=== PATIENT | female | born 1950 | race Caucasian/White ===

== ENCOUNTER 2016-12-04 09:18 | Outpatient (CLI) | payer MEDICARE ==
[2016-12-04] MEDS ORDERED: LIDOCAINE 1% 50 ML MDV SUBQ ONE (10:53)
[2016-12-04] MEDS ORDERED: BUFFERED LIDOCAINE 10 ML SYRINGE IU ONE (10:53)
[2016-12-04] MEDS ORDERED: GADOPENTETATE DIMEGLUMINE 5 ML VIAL IVP ONE (10:53)
[2016-12-04] MEDS ORDERED: IOTHALAMATE MEGLUMINE 50 ML VIAL IVP ONE (10:53)
--- NOTE | 2016-12-04 12:55 | XRAY Report ---
RIGHT WRIST INJECTION FOR MR ARTHROGRAM: 12/04/2016 CLINICAL INDICATION: Pain, question scapholunate ligament disruption. FINDINGS: Following obtaining informed consent, the patient's right wrist was prepped and draped in the usual sterile fashion. The skin and soft tissues were anesthetized with lidocaine. A butterfly needle was inserted into the radioscaphoid joint space, and following confirmation of needle position ing, a combination of iodinated contrast, dilute gadolinium, and lidocaine was injected intraarticula rly. The patient tolerated the procedure well. No immediate complications. Spot image reveals no e vidence of contrast extravasation. IMPRESSION: SUCCESSFUL RIGHT WRIST INJECTION FOR MR ARTHROGRAM. FLUOROSCOPY TIME: 34 seconds; 1 spot image obtained. JOB #: [id number] EXT JOB #:[id number]
--- NOTE | 2016-12-04 16:32 | MRI Report ---
EXAM: RIGHT WRIST MRI ARTHROGRAM WITH CONTRAST EXAM DATE: 12/04/2016 11:17 AM. CLINICAL HISTORY: Right wrist pain and weakness for 2.5 months. COMPARISON: None. TECHNIQUE: Multiplanar, multisequence T1-weighted and fluid-sensitive sequences of the wrist after an arthrographic injection of dilute gadolinium, dictated under a separate exam. Other: None. FINDINGS: Bones and articular surfaces: There is severe deformity of the distal ulna which may represent an old healed fracture. Severe joint space narrowing at the distal radioulnar joint. Some dorsal subluxatio n of the distal ulna. Lobulated contrast distention of the distal radioulnar joint. Neutral position of the distal ulna articulating with the ulnar aspect of the proximal lunate where there is cartilage thinning and tiny subchondral cyst. Moderate cartilage thinning and fissuring with subchondral edema and subchondral cyst termination at the radiolunate articulation. Musculotendinous structures: Visualized flexor and extensor tendons appear intact without evidence of significant tendinosis or tenosynovitis. Ligaments: Lunotriquetral ligament appears intact. There is slight widening of the scapholunate joint space. There is contrast extending between the scaphoid and lunate with contrast filling defect seen within the proximal scapholunate ligament. There is contrast extension beyond the proximal carpal ro w throughout the wrist compartments. In addition, there is a large defect of the central disk of the triangular fibrocartilage consistent with large tear. Contrast extension and distention of the distal radioulnar joint. IMPRESSION: 1. Large defect within the central disk of the triangular fibrocartilage. 2. Partial tear of the scapholunate ligament allowing contrast extension distal to the proximal carpa l row. 3. Severe distal radioulnar joint osteoarthritis. 4. Moderate to severe focal osteoarthritis at the radiolunate articulation. RADIA MUSCULOSKELETAL RADIOLOGY SECTION Referring Provider Line: [phone] SITE ID: [id number]
== END 2016-12-04 09:19 | disposition home or self-care (01) ==
LOC: DI 09:18
PROVIDERS: ATTEND Orthopaedic Surgery
DX: S63.8X1A Sprain of other part of right wrist and hand, initial encounter (principal); M21.931 Unspecified acquired deformity of right forearm; M19.031 Primary osteoarthritis, right wrist
CPT/HCPCS: 20610; 73222; 77002; Q9961

== ENCOUNTER 2020-07-02 16:38 | Outpatient (CLI) | payer MEDICARE | END 2020-07-02 16:39 | disposition home or self-care (01) | LOC: COV 16:38 | PROVIDERS: ATTEND Surgery | DX: Z01.812 Encounter for preprocedural laboratory examination (principal); K21.9 Gastro-esophageal reflux disease without esophagitis; Z83.71 Family history of colonic polyps; Z20.822 Contact with and (suspected) exposure to COVID-19 ==

== ENCOUNTER 2020-07-05 11:32 | Day surgery (SDC) | payer MEDICARE ==
[2020-07-05] MEDS ORDERED: LACTATED RINGERS 1,000 ML IV ONE ×2 (11:35→13:46)
[2020-07-05] MEDS ORDERED: LIDO GARGLE 30 ML BOTTLE ONE (11:52)
[2020-07-05] MEDS ORDERED: LIDO GARGLE 30 ML BOTTLE TOP ONE ×2 (12:39→12:52)
[2020-07-05] MEDS ORDERED: BENZOCAINE/TETRACAINE/BUTAMBEN 20 GM TOP ONE ×2 (12:39→12:52)
[2020-07-05] MEDS ORDERED: MIDAZOLAM 2 MG/2 ML VIAL ONE ×2 (12:56→13:51)
[2020-07-05] MEDS ORDERED: fentaNYL 250 MCG/5 ML VIAL ONE (12:56)
--- NOTE | 2020-07-05 14:09 | OPERATIVE REPORT ---
Operative Report - General Procedure Date: 07/05/20 Planned Procedure: Hemorrhoid banding Pre-Op Diagnosis: Bleeding internal hemorrhoids Procedure Performed: EUA with banding of internal hemorrhoids Post Op Diagnosis: Same - Procedure Note Primary Surgeon: Tanesha Anesthesia Provider: SHAAN Wells Anesthesia Technique: Moderate sedation Indications: Bleeding internal hemorrhoids Findings: 3 column enlarged and bleeding internal hemorrhoids Complications: None apparent - Other Other Information/Narrative: Colonoscopy was completed immediately prior to the banding procedure. Timeout was done at the start of the colonoscopy procedure.The patient remained sedated with monitored anesthesia care at this time. All elements of the surgical safety checklist were followed before, during, and after this procedure. The anoscope with obturator was lubricated and placed in the patient's anal canal. The obturator was removed and the slots aligned to allow access to 3 column internal hemorrhoids. The device, the [employer] multi band ligator-short shot-was placed into the anal canal. The tip of the device was placed in contact with the tissue to be treated beginning at the 4 o'clock position. The suction port was closed. A single band was deployed and the suction port released.The band was noted to be in place.We next addressed the hemorrhoid complex at 7:00.The tip of the device was placed in contact with the tissue, the suction port covered, a band deployed, the suction port released. Again we were able to see that the band was in place.We next addressed the hemorrhoid at the 11 o'clock position. This was the smallest of the 3. The tip of the device was placed in contact with the tissue, the suction port covered, a band deployed, the suction port released. Again we were able to see that the band was in place.Examination of the anal count canal revealed all [address] The anoscope was removed and the procedure concluded. The patient tolerated the procedure well. She was allowed awaken from sedation and taken to the postanesthesia care unit in good condition.
[2020-07-05 14:25] VITALS: BP 114/57
== END 2020-07-05 11:33 | disposition home or self-care (01) ==
LOC: SDS 11:32
PROVIDERS: ATTEND Surgery
PROC: 0DJD8ZZ Inspection of Lower Intestinal Tract, Via Natural or Artificial Opening Endoscopic (ICD-10-PCS; 2020-07-05)
PROC: 065Y4ZC Destruction of Hemorrhoidal Plexus, Percutaneous Endoscopic Approach (ICD-10-PCS; 2020-07-05)
PROC: 0DB98ZX Excision of Duodenum, Via Natural or Artificial Opening Endoscopic, Diagnostic (ICD-10-PCS; principal; 2020-07-05 12:30)
PROC: 0DB58ZX Excision of Esophagus, Via Natural or Artificial Opening Endoscopic, Diagnostic (ICD-10-PCS; 2020-07-05 12:30)
DX: Z12.11 Encounter for screening for malignant neoplasm of colon (principal); Z86.010 Personal history of colon polyps; K64.8 Other hemorrhoids; K57.30 Diverticulosis of large intestine without perforation or abscess without bleeding; K21.9 Gastro-esophageal reflux disease without esophagitis; K29.50 Unspecified chronic gastritis without bleeding; K44.9 Diaphragmatic hernia without obstruction or gangrene; K29.80 Duodenitis without bleeding
CPT/HCPCS: 43239; 46221; A9270; G0105; J3010; J7120

== ENCOUNTER 2021-02-11 19:09 | Outpatient (CLI) | payer MEDICARE | END 2021-02-11 19:10 | disposition home or self-care (01) | LOC: COV 19:09 | PROVIDERS: ATTEND Orthopaedic Surgery | DX: Z01.812 Encounter for preprocedural laboratory examination (principal); Z20.822 Contact with and (suspected) exposure to COVID-19 ==

== ENCOUNTER 2021-08-30 11:19 | Outpatient (CLI) | payer MEDICARE ==
[2021-08-30 12:02] LABS: CHOL/HDL RATIO 5.3 (<4.4); CHOLESTEROL 270 mg/dL; HDL CHOLESTEROL 51 mg/dL; LDL CHOLESTEROL,CALCULATED 196 mg/dL; LDL/HDL RATIO 3.8 (<4.4); TRIGLYCERIDES 117 mg/dL; VLDL CHOLESTEROL 23 mg/dL
[2021-08-30 12:29] LABS: ESTIMATED AVERAGE GLUCOSE 126 mg/dL (70-100)
== END 2021-08-30 11:20 | disposition home or self-care (01) ==
LOC: LAB 11:19
PROVIDERS: ATTEND Registered Nurse
DX: E78.5 Hyperlipidemia, unspecified (principal); R73.03 Prediabetes
CPT/HCPCS: 36415; 80061; 83036; 83721

== ENCOUNTER 2023-01-29 14:51 | Emergency (ER) | payer MEDICARE ==
[2023-01-29] MEDS ORDERED: SODIUM CHLORIDE 0.9% 1,000 ML IV STA (15:09)
[2023-01-29] MEDS ORDERED: PROMETHAZINE INJ 25 MG in SODIUM CHLORIDE 0.9% 50 ML IV STA (15:09)
--- NOTE | 2023-01-29 15:10 | ED Physician Documentation ---
PD HPI ABD PAIN - Stated complaint Stated Complaint: NAUSEA - Chief complaint Chief Complaint: Abd Pain - History obtained from History obtained from: Patient, Family - Additional information Additional information: This is a generally healthy 72-year-old woman who presents with her for the evaluation of abdominal cramping diarrhea and dry heaves. She had a hip replacement about 4 weeks ago but has been off all of her narcotic analgesia for about the last 2 weeks. Starting yesterday she developed abdominal cramps and diarrhea with dry heaves today. States she had something a few years ago that she thought was food poisoning and found Phenergan to be very helpful. She denies fevers or chills. No recent travel or antibiotic use. PD PAST MEDICAL HISTORY - Past Medical History Endocrine/Autoimmune: HyPOthyroidism - Present Medications Home Medications: Ambulatory Orders Medication Instructions Recorded Confirmed Cholecalciferol (Vitamin D3) 5,000 unit PO DAILY 03/20/14 07/04/20 [Vitamin D3] Aspirin Chewable [[place] 81 mg PO DAILY 01/29/23 01/29/23 Aspirin] Ciprofloxacin HCl [Cipro] 500 mg PO BID #14 tablet 01/29/23 Gabapentin [Neurontin] 100 mg PO TID 01/29/23 01/29/23 Meloxicam 15 mg PO DAILY 01/29/23 01/29/23 Ondansetron Odt [Zofran] 4 mg TL Q6H PRN #10 tablet 01/29/23 metroNIDAZOLE [Flagyl] 500 mg PO TID 7 Days #21 tablet 01/29/23 - Allergies Allergies/Adverse Reactions: Allergies Allergy/AdvReac Type Severity Reaction Status Date / Time No Known Allergies Allergy Unknown Verified 01/29/23 15:00 PD ED PE NORMAL - Vitals Vital signs reviewed: Yes - General General: Alert and oriented X 3, Other (She appears uncomfortable) - HEENT HEENT: PERRL, EOMI - Neck Neck: Supple, no meningeal sign, No bony TTP - Cardiac Cardiac: RRR, No murmur - Respiratory Respiratory: No respiratory distress, Clear bilaterally - Abdomen Abdomen: Normal bowel sounds, Other (Modest left-sided abdominal tenderness without surgical signs) - Neuro Neuro: Alert and oriented X 3, Normal speech Results - Vitals Vitals: Vital Signs - 24 hr 01/29/23 01/29/23 14:56 17:55 Temperature 36.6 C Heart Rate 77 73 Respiratory 18 18 Rate Blood Pressure 146/72 H 171/67 H O2 Saturation 99 97 Oxygen O2 Source Room air - Labs Labs: Laboratory Tests 01/29/23 01/29/23 15:22 15:22 WBC 18.6 H RBC 5.20 Hgb 15.1 Hct 47.1 H MCV 90.6 MCH 29.0 MCHC 32.1 RDW 13.7 Plt Count 267 MPV 10.4 Neut # (Auto) Not Reportable Lymph # (Auto) Not Reportable [place] # (Auto) Not Reportable Eos # (Auto) Not Reportable Baso # (Auto) Not Reportable Absolute Nucleated RBC Not Reportable Total Counted 100 Band Neuts % (Manual) 0 Reactive Lymphs % (Man) 5 Abnorm Lymph % (Manual) 0 Nucleated RBC % Not Reportable Neutrophils # (Manual) 16.2 H Lymphocytes # (Manual) 1.5 Monocytes # (Manual) 0.9 Eosinophils # (Manual) 0.0 Basophils # (Manual) 0.0 Differential Comment MANUAL DIFFERENTIAL Platelet Estimate NORMAL (130-450,000) Platelet Morphology NORMAL APPEARANCE RBC Morph Micro Appear NORMAL APPEARANCE Sodium 138 Potassium 4.0 Chloride 102 Carbon Dioxide 24 Anion Gap 12.0 BUN 15 Creatinine 0.6 Estimated GFR (MDRD) 98 Glucose 148 H Calcium 9.8 Total Bilirubin 0.7 AST 16 ALT 15 Alkaline Phosphatase 78 Total Protein 6.8 Albumin 4.3 Globulin 2.5 Albumin/Globulin Ratio 1.7 Lipase 6 L - Rads (name of study) CT abdomen pelvis with IV contrast demonstrates colitis of the transverse and descending colon. Relevant Findings:: Final report received, EMP independent interpretation of test PD Medical Decision Making - ED course ED course: 72-year-old woman presents with diarrhea abdominal cramping and dry heaves with left-sided abdominal tenderness. Work-up in the emergency department shows a CBC with leukocytosis and relatively unremarkable CMP. CT demonstrating colitis. C. difficile is a concern but would not have had recent antibiotics save a single dose of IV antibiotics 4 weeks ago for her hip replacement, none more recently. She was unable to produce a stool sample while in the emergency department. She had initially specifically requested Phenergan for her nausea and IV Phenergan was given but not particularly helpful but was feeling better after IV Zofran and fluids. She passed a p.o. challenge and requested discharge. She was sent home with an outpatient lab requisition for stool culture and C. difficile test and supplies to do so with. Departure - Departure Disposition: Home, Self Care Clinical Impression: Colitis Condition: Good Record reviewed to determine appropriate education?: Yes Instructions: ED Diarrhea Bacterial Prescriptions: Ciprofloxacin HCl [Cipro] 500 mg PO BID #14 tablet metroNIDAZOLE [Flagyl] 500 mg PO TID 7 Days #21 tablet Ondansetron Odt [Zofran] 4 mg TL Q6H PRN #10 tablet PRN Reason: Nausea / Vomiting Comments: You were seen tonight for colitis, and infection of the colon. 1 because of colitis as we discussed, it is what is called C. difficile. I am sending you home with a lab requisition and materials to return a stool sample to the hospital to test for that in the meantime, he will take the antibiotics. Do not drink alcohol on the antibiotics. I am also writing a prescription for something for nausea. Return if worse. Follow-up with your doctor early next week if not better. Forms: PCP List
[2023-01-29 15:31] LABS: BASOPHILS % (AUTO) 0.3 %; EOSINOPHILS % (AUTO) 31.5 %; HCT - HEMATOCRIT 47.1 % (37.0-47.0); HGB - HEMOGLOBIN 15.1 g/dL (12.0-16.0); LYMPHOCYTES % (AUTO) 8.5 %; MEAN CORPUSCULAR HGB CONC 32.1 g/dL (32.0-36.0); MEAN CORPUSCULAR VOLUME 90.6 fL (81.0-99.0); MEAN PLATELET VOLUME 10.4 fL (7.9-10.8); NEUTROPHILS % (AUTO) 54.4 %; PLT - PLATELET COUNT 267 10^3/uL (130-450); RED CELL DISTRIBUTION WIDTH 13.7 % (12.0-15.0); WHITE BLOOD COUNT 18.6 x10^3/uL (4.8-10.8)
[2023-01-29 15:36] LABS: ABNORMAL LYMPHS % (MANUAL) 0 %; BAND NEUTROPHILS % (MANUAL) 0 %
[2023-01-29 15:53] LABS: ALBUMIN 4.3 g/dL (3.2-5.5); ALBUMIN/GLOBULIN RATIO 1.7 (1.0-2.2); BILIRUBIN,TOTAL 0.7 mg/dL (0.2-1.0); CALCIUM 9.8 mg/dL (8.5-10.3); CREATININE 0.6 mg/dL (0.6-1.3); TOTAL PROTEIN 6.8 g/dL (6.4-8.9)
[2023-01-29 16:15] LABS: LYMPHOCYTES # (MANUAL) 1.5 10^3/uL (1.5-3.5); LYMPHOCYTES % (MANUAL) 3 %; MONOCYTES # (MANUAL) 0.9 10^3/uL (0.0-1.0); NEUTROPHILS # (MANUAL) 16.2 10^3/uL (1.5-6.6); REACTIVE LYMPHS % (MANUAL) 5 %
[2023-01-29 16:16] LABS: DIFFERENTIAL COMMENT MANUAL DIFFERENTIAL; PLATELET ESTIMATE, MANUAL NORMAL (130-450,000) (NORMAL); PLATELET MORPHOLOGY NORMAL APPEARANCE (NORMAL); RBC MORPHOLOGY (MULTIPLE) NORMAL APPEARANCE (NORMAL)
[2023-01-29] MEDS ORDERED: iohexoL-300 100 ML VIAL IVP ONE (16:25)
[2023-01-29] MEDS ORDERED: ONDANSETRON 4 MG/2 ML VIAL IVP STA (16:42)
--- NOTE | 2023-01-29 16:59 | CT Report ---
PROCEDURE: ABDOMEN/PELVIS W INDICATIONS: iv only, l abd pain CONTRAST: 100ml omni 300 TECHNIQUE: After the administration of intravenous contrast, 5 mm thick sections acquired from the diaphragms to the symphysis. 5 mm thick coronal and sagittal reformats were acquired. For radiation dose reducti on, the following was used: automated exposure control, adjustment of mA and/or kV according to chanell ent size. COMPARISON: None. FINDINGS: Image quality: Excellent. Lung bases and heart: Unremarkable. Liver: No solid mass. Gallbladder and biliary tree: No radiopaque stones or wall thickening. No biliary dilation. Spleen: No splenomegaly. Pancreas: No pancreatic ductal dilation. Adrenals: No adrenal nodule. Kidneys and ureters: No hydronephrosis. No renal cystic lesion which requires follow up. No solid mas s. Bowel and peritoneum: Long segment of wall thickening and pericolonic fat stranding of the transverse and descending colon. Lymph nodes: No central or retroperitoneal adenopathy. Vessels: No infrarenal aortic aneurysm. PELVIS Reproductive organs: Unremarkable. Bladder: No abnormal wall thickening, accounting for underdistension. Pelvic lymph nodes: No pelvic adenopathy by size criteria. Bones: No aggressive osseous abnormality. Surgical fusion of the C4-5 vertebrae. Bilateral hip arthro plasties. Other: No significant ventral or inguinal hernia. IMPRESSION: Colitis of the transverse and descending colon. Given extent, C. difficile not excluded. Reviewed by: Lnius Manzanares on 01/29/2023 4:58 PM PDT Approved by: Linus Manzanares on 01/29/2023 4:58 PM PDT Station ID: [id number]
[2023-01-29] MEDS ORDERED: CIPROFLOXACIN 250 MG TABLET PO STA (17:42)
[2023-01-29] MEDS ORDERED: metroNIDAZOLE 250 MG TABLET PO STA (17:42)
[2023-01-29 18:01] VITALS: BP 171/67; O2SAT 97
[2023-01-29] MEDS ORDERED: ONDANSETRON ODT 4 MG Prepack 2 TL STA (18:26)
== END 2023-01-29 18:55 | disposition home or self-care (01) ==
LOC: ED 14:51
DX: K52.9 Noninfective gastroenteritis and colitis, unspecified (principal)
CPT/HCPCS: 36415; 74177; 80053; 83690; 85025; 96365; 96375; 99284; A9270; J7040; Q9967

== ENCOUNTER 2023-01-30 10:09 | Outpatient (CLI) | payer MEDICARE | END 2023-01-30 10:10 | disposition home or self-care (01) | LOC: LAB 10:09 | PROVIDERS: ATTEND Emergency Medicine | DX: R19.7 Diarrhea, unspecified (principal) | CPT/HCPCS: 87045; 87046; 87427; 87493 ==

== ENCOUNTER 2023-04-02 10:31 | Outpatient (CLI) | payer MEDICARE ==
[2023-04-02 15:21] LABS: BASOPHILS # (AUTO) 0.1 10^3/uL (0.0-0.1); BASOPHILS % (AUTO) 0.9 %; EOSINOPHILS # (AUTO) 0.2 10^3/uL (0.0-0.7); EOSINOPHILS % (AUTO) 2.5 %; HCT - HEMATOCRIT 48.3 % (37.0-47.0); HGB - HEMOGLOBIN 14.7 g/dL (12.0-16.0); LYMPHOCYTES # (AUTO) 2.3 10^3/uL (1.5-3.5); LYMPHOCYTES % (AUTO) 36.7 %; MEAN CORPUSCULAR HEMOGLOBIN 28.7 pg (27.0-31.0); MEAN CORPUSCULAR HGB CONC 30.4 g/dL (32.0-36.0); MEAN CORPUSCULAR VOLUME 94.2 fL (81.0-99.0); MEAN PLATELET VOLUME 11.6 fL (7.9-10.8); MONOCYTES # (AUTO) 0.7 10^3/uL (0.0-1.0); MONOCYTES % (AUTO) 10.2 %; NEUTROPHILS # (AUTO) 3.2 10^3/uL (1.5-6.6); NEUTROPHILS % (AUTO) 49.5 %; PLT - PLATELET COUNT 257 10^3/uL (130-450); RED BLOOD COUNT 5.13 10^6/uL (4.20-5.40); RED CELL DISTRIBUTION WIDTH 14.1 % (12.0-15.0); WHITE BLOOD COUNT 6.4 x10^3/uL (4.8-10.8)
[2023-04-02 15:29] LABS: ALBUMIN 4.1 g/dL (3.2-5.5); ALBUMIN/GLOBULIN RATIO 1.8 (1.0-2.2); ALKALINE PHOSPHATASE 62 IU/L (42-121); ALT ALANINE AMINOTRANSFERASE 14 IU/L (10-60); AST ASPARTATE AMINOTRANSFERASE 16 IU/L (10-42); BILIRUBIN,TOTAL 0.5 mg/dL (0.2-1.0); BUN - BLOOD UREA NITROGEN 14 mg/dL (6-20); CALCIUM 9.5 mg/dL (8.5-10.3); CARBON DIOXIDE - CO2 30 mmol/L (21-32); CHLORIDE 105 mmol/L (101-111); CHOL/HDL RATIO 5.1 (<4.4); CHOLESTEROL 254 mg/dL; CREATININE 0.6 mg/dL (0.6-1.3); GFR - MDRD 98 (>89); GLUCOSE 105 mg/dL (74-104); HDL CHOLESTEROL 50 mg/dL; LDL CHOLESTEROL,CALCULATED 168 mg/dL; LDL/HDL RATIO 3.4 (<4.4); POTASSIUM 4.5 mmol/L (3.5-4.5); SODIUM 141 mmol/L (135-145); TOTAL PROTEIN 6.4 g/dL (6.4-8.9); TRIGLYCERIDES 179 mg/dL (48-352); VLDL CHOLESTEROL 36 mg/dL
[2023-04-02 15:39] LABS: THYROID STIMULATING HORMONE 2.26 uIU/mL (0.34-5.60)
[2023-04-03 06:47] LABS: ESTIMATED AVERAGE GLUCOSE 131 mg/dL (70-100); HEMOGLOBIN A1c% 6.2 % (4.27-6.07)
== END 2023-04-02 10:32 | disposition home or self-care (01) ==
LOC: LAB.S 10:31
PROVIDERS: ATTEND Internal Medicine
DX: Z00.00 Encounter for general adult medical examination without abnormal findings (principal); E78.5 Hyperlipidemia, unspecified; M19.90 Unspecified osteoarthritis, unspecified site; E03.9 Hypothyroidism, unspecified; R53.82 Chronic fatigue, unspecified
CPT/HCPCS: 36415; 80053; 80061; 83036; 83721; 84439; 84443; 84481; 85025

== ENCOUNTER 2023-06-18 11:46 | Outpatient (CLI) | payer MEDICARE ==
[2023-06-18] MEDS ORDERED: DIATRIZOATE MEGLU/DIATRIZO SOD 30 ML BOTTLE PO ONE (11:53)
[2023-06-18] MEDS ORDERED: iohexoL-300 100 ML VIAL ONE (11:53)
[2023-06-18 12:30] LABS: CREATININE 0.8 mg/dL (0.6-1.3)
[2023-06-18] MEDS: iohexoL-300 100 ML VIAL IVP ONE (14:51)
[2023-06-18] MEDS: DIATRIZOATE MEGLU/DIATRIZO SOD 30 ML BOTTLE PO ONE (14:52)
--- NOTE | 2023-06-18 15:58 | CT Report ---
PROCEDURE: Abdomen/Pelvis W INDICATIONS: CHANGE IN BOWEL MOVEMENTS, HIST OF DIVERTICULOSIS CONTRAST: Omni 300 100ml TECHNIQUE: After the administration of intravenous contrast, a CT scan of the abdomen and pelvis was performed. Images were recorded and evaluated at appropriate window settings. Reformats: coronal and sagittal. F or radiation dose reduction, the following was used: automated exposure control, adjustment of mA and /or kV according to patient size. COMPARISON: None. FINDINGS: Image quality: Suboptimal due to metallic artifact in the pelvis. Lower chest: Unremarkable. Liver: Hepatic steatosis. Gallbladder and biliary tree: No radiopaque stones or wall thickening. No biliary dilation. Spleen: No splenomegaly. Pancreas: No pancreatic ductal dilation. Adrenals: No adrenal nodule. Kidneys and ureters: No hydronephrosis. No renal cystic lesion which requires follow up. No solid mas s. Stomach, bowel and peritoneum: No bowel distension. No pathologic free fluid. Diverticulosis without evidence of diverticulitis. Normal appendix. Lymph nodes: No central or retroperitoneal adenopathy. Vessels: No infrarenal aortic aneurysm. PELVIS Reproductive organs: Unremarkable. Bladder: No abnormal wall thickening, accounting for underdistention. Pelvic lymph nodes: No pelvic adenopathy by size criteria. Bones: No aggressive osseous abnormality. Surgical fusion at L4-5. Moderate degenerative disc disease at L5-S1. Other: No significant ventral or inguinal hernia. IMPRESSION: Colonic diverticulosis without evidence of diverticulitis. Hepatic steatosis. Reviewed by: Linus Manzanares MD on 06/18/2023 3:56 PM PST Approved by: Linus Manzanares MD on 06/18/2023 3:56 PM PST Station ID: [id number]
== END 2023-06-18 11:47 | disposition home or self-care (01) ==
LOC: LAB 11:46
PROVIDERS: ATTEND Internal Medicine
DX: R19.4 Change in bowel habit (principal); A09 Infectious gastroenteritis and colitis, unspecified; Z87.19 Personal history of other diseases of the digestive system; K57.30 Diverticulosis of large intestine without perforation or abscess without bleeding; K76.0 Fatty (change of) liver, not elsewhere classified
CPT/HCPCS: 36415; 74177; 82565; Q9963; Q9967

== ENCOUNTER 2023-07-15 11:01 | Outpatient (CLI) | payer MEDICARE ==
[2023-07-15 14:37] LABS: BASOPHILS # (AUTO) 0.1 10^3/uL (0.0-0.1); BASOPHILS % (AUTO) 0.7 %; EOSINOPHILS # (AUTO) 0.2 10^3/uL (0.0-0.7); EOSINOPHILS % (AUTO) 3.1 %; HCT - HEMATOCRIT 50.2 % (37.0-47.0); HGB - HEMOGLOBIN 15.5 g/dL (12.0-16.0); LYMPHOCYTES # (AUTO) 2.3 10^3/uL (1.5-3.5); LYMPHOCYTES % (AUTO) 32.4 %; MEAN CORPUSCULAR HEMOGLOBIN 28.2 pg (27.0-31.0); MEAN CORPUSCULAR HGB CONC 30.9 g/dL (32.0-36.0); MEAN CORPUSCULAR VOLUME 91.4 fL (81.0-99.0); MONOCYTES # (AUTO) 0.6 10^3/uL (0.0-1.0); NEUTROPHILS # (AUTO) 3.9 10^3/uL (1.5-6.6); NEUTROPHILS % (AUTO) 54.5 %; PLT - PLATELET COUNT 285 10^3/uL (130-450); RED BLOOD COUNT 5.49 10^6/uL (4.20-5.40); RED CELL DISTRIBUTION WIDTH 13.5 % (12.0-15.0); WHITE BLOOD COUNT 7.1 x10^3/uL (4.8-10.8)
[2023-07-15 15:14] LABS: ALBUMIN 4.1 g/dL (3.2-5.5); ALBUMIN/GLOBULIN RATIO 1.6 (1.0-2.2); ALKALINE PHOSPHATASE 67 IU/L (42-121); ALT ALANINE AMINOTRANSFERASE 22 IU/L (10-60); AST ASPARTATE AMINOTRANSFERASE 21 IU/L (10-42); BILIRUBIN,TOTAL 0.6 mg/dL (0.2-1.0); BUN - BLOOD UREA NITROGEN 10 mg/dL (6-20); CALCIUM 9.7 mg/dL (8.5-10.3); CARBON DIOXIDE - CO2 29 mmol/L (21-32); CHLORIDE 104 mmol/L (101-111); CREATININE 0.7 mg/dL (0.6-1.3); CRP - C-REACTIVE PROTEIN < 0.5 mg/dL (<0.5); GFR - MDRD 82 (>89); GLUCOSE 101 mg/dL (74-104); SODIUM 139 mmol/L (135-145); TOTAL PROTEIN 6.6 g/dL (6.4-8.9)
== END 2023-07-15 11:02 | disposition home or self-care (01) ==
LOC: LAB.S 11:01
PROVIDERS: ATTEND Internal Medicine
DX: A09 Infectious gastroenteritis and colitis, unspecified (principal); Z87.19 Personal history of other diseases of the digestive system
CPT/HCPCS: 36415; 80053; 85025; 86140

== ENCOUNTER 2023-08-17 12:13 | Outpatient (CLI) | payer MEDICARE ==
[2023-08-17] MEDS ORDERED: iohexoL-300 100 ML VIAL ONE ×2 (12:17→20:55)
[2023-08-17] MEDS ORDERED: DIATRIZOATE MEGLU/DIATRIZO SOD 30 ML BOTTLE PO ONE (12:17)
[2023-08-17 12:49] LABS: CREATININE 0.8 mg/dL (0.6-1.3)
[2023-08-17] MEDS: DIATRIZOATE MEGLU/DIATRIZO SOD 30 ML BOTTLE PO ONE (17:35)
--- NOTE | 2023-08-20 09:43 | CT Report ---
PROCEDURE: Abdomen/Pelvis WO INDICATIONS: LLQ ABD PAIN TECHNIQUE: A CT scan of the abdomen and pelvis was performed without the use of intravenous contrast. Images we re recorded and evaluated at appropriate window settings. Reformats: coronal and sagittal. For radiat ion dose reduction, the following was used: automated exposure control, adjustment of mA and/or kV ac cording to patient size. COMPARISON: CT 06/18/2023. CT 01/29/2023. FINDINGS: Image quality: Diagnostic. Lower chest: Unremarkable. Liver: Hepatic steatosis. Gallbladder and biliary tree: No radiopaque stones or wall thickening. No biliary dilation. Spleen: No splenomegaly. Pancreas: No pancreatic ductal dilation. Adrenals: No adrenal nodule. Kidneys and ureters: No hydronephrosis. No renal cystic lesion which requires follow up. No solid mas s. Stomach, bowel and peritoneum: Short segment of transverse colonic wall thickening, new from prior (s eries 10, image 66). Diverticulosis without evidence of diverticulitis. Normal appendix. Lymph nodes: No central or retroperitoneal adenopathy. Vessels: No infrarenal aortic aneurysm. PELVIS Reproductive organs: Unremarkable. Bladder: No wall thickness, accounting for underdistention. Pelvic lymph nodes: No pelvic adenopathy by size criteria. Bones: No aggressive osseous abnormality. Degenerative disc disease, predominantly of the lumbar spin e. Posterior surgical fusion of L4-5. Hip arthroplasties. Other: No significant ventral or inguinal hernia. IMPRESSION: Short segment of transverse colonic wall thickening in the right upper quadrant. Given no right upper quadrant pain, findings probably represent artifact of underdistention, although colitis would have a similar appearance. Mass is less likely given normal appearance on recent CT. Colonic diverticulosis without evidence of diverticulitis. Hepatic steatosis. Reviewed by: Linus Manzanares MD on 08/20/2023 9:42 AM PDT Approved by: Linus Manzanares MD on 08/20/2023 9:42 AM PDT Station ID: [id number]
== END 2023-08-17 12:14 | disposition home or self-care (01) ==
LOC: LAB 12:13
PROVIDERS: ATTEND Internal Medicine
DX: R10.32 Left lower quadrant pain (principal); A09 Infectious gastroenteritis and colitis, unspecified; K57.90 Diverticulosis of intestine, part unspecified, without perforation or abscess without bleeding; K76.0 Fatty (change of) liver, not elsewhere classified
CPT/HCPCS: 36415; 74176; 82565; Q9963; Q9967